=== PATIENT | male | born 1975 | race Caucasian/White ===

== ENCOUNTER 2017-04-29 18:45 | Emergency (ER) | payer BC ==
[~2017-04-29] VITALS: Ht 167.6 cm; Wt 118.6 kg
[~2017-04-29 18:45] MED LIST: ASPIR-LOW81 MG PO; ATORVASTATIN CA80 MG PO; CARAFATE100 MG/ML PO; CLOPIDOGREL75 MG PO; LIPITOR40 MG PO; LOPRESSOR25 MG PO; NITROSTAT0.4 MG SL; NOHOMEMEDS; PANTOPRAZOLE SO40 MG PO; PEPCID40 MG PO; PRILOSEC40 MG PO; ZETIA10 MG PO; ZITHROMAX250 MG PO; [UNRECOGNIZED DRUG - REMARK]; [UNRECOGNIZED DRUG - REMARK]
[2017-04-29] MEDS ORDERED: TESSALON PERLE100 MG PO (20:38)
[2017-04-29] MEDS ORDERED: ZITHROMAX Z-PA250 MG PO (20:38)
[2017-04-29 21:00] VITALS: BP 130/65
== END 2017-04-29 21:00 | disposition home or self-care (01) ==
LOC: EME 18:45
DX: J18.9 Pneumonia, unspecified organism (principal); K21.9 Gastro-esophageal reflux disease without esophagitis; I25.2 Old myocardial infarction; Z87.891 Personal history of nicotine dependence
CPT/HCPCS: 71020; 94640; 99281; 99283

== ENCOUNTER 2017-08-09 01:52 | Emergency (ER) | payer BC ==
[~2017-08-09 01:52] MED LIST changes: +TESSALON PERLE100 MG PO; +ZITHROMAX Z-PA250 MG PO
[2017-08-09 04:07] LABS: BASOPHIL COUNT 0.1 K/uL (0-0.1); EOSINOPHIL (%) 1.7 % (0-5); EOSINOPHIL COUNT 0.2 K/uL (0-0.3); HEMATOCRIT 41.5 % (38.0-50.0); IMMATURE GRANULOCYTE COUNT 0.3 K/uL; INSTRUMENT ABS NEUTROPHIL CT 6.3 K/uL; LYMPHOCYTE COUNT 4.5 K/uL (1.0-2.8); MCH 28.7 PG (29.0-34.0); MCHC 33.5 G/DL (30.0-36.0); MCV 85.7 FL (86-99); MEAN PLAT.VOLUME 10.9 uM^3 (9.0-12.4); MONOCYTE (%) 8.7 % (3-12); MONOCYTE COUNT 1.1 K/uL (0-0.8); NEUTROPHIL (%) 51.1 % (45-76); NEUTROPHIL COUNT 6.3 K/uL (1.8-6.4); PLATELET COUNT 218 K/uL (156-360); RBC DIS.WIDTH-CV 12.6 % (11.8-14.6); RBC DIS.WIDTH-SD 39.5 % (39-53); RED BLOOD COUNT 4.84 M/uL (4.00-5.50); WHITE BLOOD COUNT 12.4 K/uL (4.1-10.2)
[2017-08-09 04:15] LABS: CHLORIDE 105 mEq/L (99-109); SODIUM 140 mEq/L (136-147)
[2017-08-09 04:17] LABS: GLUCOSE 118 mg/dL (70-99)
[2017-08-09 04:18] LABS: ANION GAP 11 MEQ/L (2-14)
[2017-08-09 04:21] LABS: GFR ESTIMATE (CALCULATED) > 59 mL/min/
[2017-08-09 04:22] LABS: UREA NITROGEN (BUN) 19 mg/dL (9-23)
[2017-08-09 04:28] LABS: TROP-I INTERPRETATION NEGATIVE; TROPONIN-I < 0.01 ng/mL (0.0-0.30)
[2017-08-09] MEDS ORDERED: PREDNISONE20 MG PO (04:56)
== END 2017-08-09 05:29 | disposition home or self-care (01) ==
LOC: EME 01:52
PROVIDERS: Emergency Medicine
DX: J20.9 Acute bronchitis, unspecified (principal); J45.909 Unspecified asthma, uncomplicated; Z95.5 Presence of coronary angioplasty implant and graft; F17.200 Nicotine dependence, unspecified, uncomplicated
CPT/HCPCS: 71020; 80048; 84484; 85025; 99281; 99284; J7512